=== PATIENT | female | born 1995 ===

== ENCOUNTER 2017-01-18 19:40 | Emergency (ER) | payer SELFPAY ==
[2017-01-18 20:25] VITALS: O2SAT 99
[2017-01-18] MEDS ORDERED: Sodium Chloride 0.9% 1,000 ML ONE (20:44)
[2017-01-18] MEDS ORDERED: Sodium Chloride 0.9% 500 ML IV ONE (20:44)
--- NOTE | 2017-01-18 20:50 | C.PDOC ---
History Of Present Illness 21 yr old female presents to the ER with complaints of vomiting and abdominal pain since morning at onset of her menses. Denies fever, chills, dysuria, back pain, weakness or numbness. Pt reports similar pain with each menstrual cycle but never with vomiting. Time Seen by Provider: 01/18/17 20:30 Chief Complaint (Nursing): Abdominal Pain History Per: Patient History/Exam Limitations: no limitations Onset/Duration Of Symptoms: Sudden Onset (Since morning) Past Medical History Reviewed: Historical Data, Nursing Documentation, Vital Signs Vital Signs: Last Vital Signs Temp 97.4 F L 01/18/17 22:45 Pulse 67 01/18/17 22:45 Resp 20 01/18/17 22:45 BP 109/61 01/18/17 22:45 Pulse Ox 99 01/18/17 22:45 Family History: States: No Known Family Hx - Social History Hx Alcohol Use: No Hx Substance Use: No - Immunization History Hx Tetanus Toxoid Vaccination: No Hx Influenza Vaccination: Yes Hx Pneumococcal Vaccination: No Review Of Systems Except As Marked, All Systems Reviewed And Found Negative. Constitutional: Negative for: Fever, Chills Gastrointestinal: Positive for: Vomiting, Abdominal Pain Genitourinary: Negative for: Dysuria Musculoskeletal: Negative for: Back Pain Neurological: Negative for: Weakness, Numbness Physical Exam - Physical Exam Appears: Non-toxic, No Acute Distress Skin: Warm, Dry, No Rash Head: Atraumatic, Normacephalic Eye(s): bilateral: Normal Inspection, PERRL, EOMI Oral Mucosa: Moist Chest: Symmetrical, No Tenderness Cardiovascular: Rhythm Regular, No Murmur Respiratory: Normal Breath Sounds, No Rales, No Rhonchi, No Stridor, No Wheezing Gastrointestinal/Abdominal: Soft, Tenderness (Right suprapubic and mid abdominal ), No Guarding, No Rebound Back: No CVA Tenderness Pelvic: Other (pt refused- on her period) Extremity: Normal ROM, No Swelling Neurological/Psych: Oriented x3, Normal Speech, Normal Motor, Normal Sensation ED Course And Treatment - Laboratory Results Result Diagrams: 01/18/17 20:58 01/18/17 20:58 O2 Sat by Pulse Oximetry: 99 (RA) Pulse Ox Interpretation: Normal Medical Decision Making Medical Decision Making: PLAN: * Labs incl UA, and UCG * Sodium Chloride IV Pt reports improved pain, tolerated PO fluids, in NAD, VSS. Pt will be d/c home with instructions to follow up Disposition Counseled Patient/Family Regarding: Diagnosis, Need For Followup, Rx Given - Disposition Referrals: Deana Mayen MD [Medical Doctor] - Disposition: HOME/ ROUTINE Disposition Time: 22:33 Condition: STABLE Additional Instructions: Please follow up with PMD Take motrin PO as directed Zofran as needed for nausea Return to ER if worse Prescriptions: Ibuprofen [Motrin] 1 tab PO TID PRN #30 tab PRN Reason: Pain Ondansetron ODT [Zofran ODT] 1 odt PO BID PRN #6 odt PRN Reason: Nausea/Vomiting Instructions: Dysmenorrhea (ED) Forms: [employer] (Swedish) Print Language: BULGARIAN - Clinical Impression Clinical Impression: Dysmenorrhea - PA / CARE TRANSITION MGR / Resident Statement MD/ has reviewed & agrees with the documentation as recorded. - Scribe Statement The provider has reviewed the documentation as recorded by the Rajeshibcarrington Slater All medical record entries made by the Rajeshibcarrington were at my direction and personally dictated by me. I have reviewed the chart and agree that the record accurately reflects my personal performance of the history, physical exam, medical decision making, and the department course for this patient. I have also personally directed, reviewed, and agree with the discharge instructions and disposition.
[2017-01-18 21:01] LABS: BASO % 0.2 % (0.0-2.0); EOS % 0.1 % (0.0-4.0); HEMATOCRIT 37.2 % (34.0-47.0); LYMPH # 1.5 K/uL (1.0-4.3); LYMPH % 10.7 % (20.0-40.0); MEAN CELL VOLUME 89.4 fL (81.0-99.0); MEAN CORPUSCULAR HEMOGLOBIN 29.8 pg (27.0-31.0); MEAN CORPUSCULAR HGB CONC 33.3 g/dL (33.0-37.0); MEAN PLATELET VOLUME 8.9 fL (7.2-11.7); MONO # 0.7 K/uL (0.0-0.8); MONO % 5.2 % (0.0-10.0); RED CELL DISTRIBUTION WIDTH 12.6 % (11.5-14.5); WHITE BLOOD COUNT 13.7 K/uL (4.8-10.8)
[2017-01-18 21:09] LABS: CHLORIDE 105 mmol/L (98-107)
[2017-01-18 21:10] LABS: POTASSIUM 3.7 mmol/L (3.6-5.2); SODIUM 138 mmol/L (132-148)
[2017-01-18 21:12] LABS: ALB/GLOB RATIO 1.5 (1.0-2.1); ALKALINE PHOSPHATASE 67 U/L (38-126); AST/SGOT 27 U/L (14-36); BILIRUBIN,TOTAL 0.6 mg/dL (0.2-1.3); BLOOD UREA NITROGEN 12 mg/dL (7-17); CARBON DIOXIDE 20 mmol/L (22-30); GFR AFRICAN-AMERICAN > 60; GLUCOSE,RANDOM 117 mg/dL (65-105); TOTAL PROTEIN 7.7 g/dL (6.3-8.3)
[2017-01-18 21:13] LABS: ALT/SGPT 35 U/L (9-52); CALCIUM 9.1 mg/dl (8.6-10.4)
[2017-01-18 22:07] LABS: RBC URINE 33 /hpf (0-3); URINE BILIRUBIN NEGATIVE (NEGATIVE); URINE BLOOD 2+ (NEGATIVE); URINE COLOR Yellow (YELLOW); URINE GLUCOSE (UA) NORMAL (Normal); URINE KETONE 2+ mg/dL (NEGATIVE); URINE LEUKOCYTE ESTERASE NEG Leu/uL (Negative); URINE PROTEIN 1+ mg/dL (NEGATIVE); URINE UROBILINOGEN NORMAL mg/dL (0.2-1.0); WBC URINE 5 /hpf (0-5)
[2017-01-18 22:46] VITALS: BP 109/61; PULSE 67; RESP 20; TEMP 97.4
== END 2017-01-18 22:46 | disposition home or self-care (01) ==
LOC: C.ER 19:40
DX: N94.6 Dysmenorrhea, unspecified (principal)
CPT/HCPCS: 80053; 81001; 84703; 85025; 96361; 96374; 96375; 99284; J1885; J2405; J7040